=== PATIENT | female | born 1965 | race Caucasian/White ===

== ENCOUNTER 2020-12-25 10:02 | Emergency (ER) | payer OTHER, SELFPAY ==
--- NOTE | ~2020-12-25 | XR_ITS ---
EXAMINATION: XR CHEST CLINICAL INFORMATION: Shortness of breath COMPARISON: 10/25/2010 TECHNIQUE: AP portable upright view of the chest was obtained. FINDINGS: Lordotic positioning. Nonspecific prominence of the cardiac and mediastinal contours likely artifactual. Lungs grossly clear without consolidation or effusion. Lung volumes preserved. XR/XR chest 1V IMPRESSION: Limited portable radiograph without acute abnormality.
--- NOTE | 2020-12-25 10:15 | ECG_ITS ---
Test Reason : SOB Blood Pressure : / mmHG Vent. Rate : 074 BPM Atrial Rate : 074 BPM P-R Int : 162 ms QRS Dur : 086 ms QT Int : 408 ms P-R-T Axes : 036 -12 -06 degrees QTc Int : 452 ms Normal sinus rhythm ST & T wave abnormality, consider anterolateral ischemia Abnormal ECG When compared with ECG of 25-DEC-2020 10:04, Inverted T waves have replaced nonspecific T wave abnormality in Anterior leads Referred By: Soraya Palacios Electronically Signed By:Hiram French
[2020-12-25 10:20] VITALS: BP 153/78; PULSE 78; RESP 20; TEMP 36.9; O2SAT 98; BMI 45.6
--- NOTE | 2020-12-25 10:27 | ED.GENADULT ---
HPI - General Adult General Chief complaint: General Medical Stated complaint: sob,fatigue Time Seen by Provider: 12/25/20 10:15 Source: patient Mode of arrival: ambulatory Limitations: no limitations History of Present Illness HPI narrative: 55 y/o female with history of fibromyalgia, depression, seizures, hypothyroidism who presents to the ED c/o generalized fatigue, SOB and non-productive cough for the last 1 week. She received her second dose of her COVID vaccine 7 days ago. The following 48 hours she had body aches and fatigue. 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 Since then she has not been sleeping well. She has not been taking care of her self, not taking her medications and eating poorly. She denies SI but admits to worsening depression with poor sleep. She reports feeling wheezy with a dry cough. Denies history of asthma or COPD. MD complaint: fatigue Onset (ago): week(s) (1) Radiation: non-radiation Severity: moderate Exacerbating factors: movement Associated symptoms: cough, malaise and weakness Treatments prior to arrival: none Related Data Allergies Allergy/AdvReac Type Severity Reaction Status Date / Time No Known Allergies Allergy Unverified 07/01/20 16:28 Review of Systems Review of Systems: Constitutional: No Fever, No Chills ENT/Mouth: No sore throat, No Rhinorrhea, No Swallowing Difficulty Eyes: No Eye Pain, No Swelling, No Redness Cardiovascular: No Chest Pain, No SOB, No Orthopnea, No Edema Respiratory: + Cough, No Sputum, No Wheezing, No dyspnea Gastrointestinal: No Nausea, No Vomiting, No Diarrhea, No abdominal Pain Genitourinary: No Dysuria, No Urinary Frequency, No Hematuria Musculoskeletal: No joint pain, + Myalgias Skin: No Skin Lesions, No rash Neuro: + Weakness, No Numbness, No Dizziness, No Headache Psych: No Anxiety/Panic, + Depression, No SI Heme/Lymph: No Bruising, No Lymphadenopathy Endocrine: No Polyuria, No Polydipsia PMFSH Past Medical History Attestation statement: The following information was validated with the patient. Medical History Depressed Fibromyalgia Hypothyroid Surgical History (Updated 12/25/20 @ 10:25 by Destinee Liz) History of hip replacement Social History Social History Alcohol intake: current Alcohol intake frequency: 0-2 drinks per day Smoking Status: Former smoker Use of substances other than those prescribed or required for medical reasons: No Advance Directives: No Advance Directives Information Provided: No Physical Exam Vital Signs: Vital Signs: Last Vital Signs Temp 98.4 F 12/25/20 11:17 Pulse 69 12/25/20 11:17 Resp 18 12/25/20 11:17 BP 148/56 H 12/25/20 11:17 Pulse Ox 98 12/25/20 11:17 Body Mass Index 45.6 Appearance: Alert. Oriented X3. No acute distress. Eyes: Pupils equal, round and reactive to light. ENT: Pharynx normal. Neck: Normal inspection. Neck supple. CVS: Normal heart rate and rhythm. Pulses normal. Respiratory: No respiratory distress. Breath sounds normal. Abdomen: Obese, soft and non-tender. +BS x4 Skin: Skin warm and dry. Normal skin color. Normal skin turgor. No rashes. Extremities: No lower extremity edema. Negative Tavon's sign. Neuro: Oriented X 3. No motor deficit. No sensory deficit. Course Course Course Narrative: 55 y/o female presenting with fatigue, cough, wheezing after COVID vaccine & recent of her client causing increased stress, lack of sleep. She was seen at [facility] and sent to the ER for ischemic changes on EKG - t-wave inversions in leads II,III, aVF and V3-V6. She denies chest pain and SOB. Main complaint is fatigue. Admits to not taking meds in 1 week. Will give dose of Synthroid here, check basic labs, EKG and CXR. Dispo pending results. Reevaluation(s) Reevaluation #1: Lab workup is unremarkable, including negative troponin, BNP, TSH, electrolytes, CXR. COVID negative. She continues to be chest pain free and denies SOB. We discussed her abnormal EKG and recommended following up with a Radio Maintainer which she is agreeable to. She is stable for discharge. Medical Decision Making Lab Data Result diagrams: 12/25/20 10:58 12/25/20 10:58 Labs: Lab Results 12/25/20 12/25/20 12/25/20 Range/Units 10:58 10:58 10:58 WBC 5.6 (4.8-10.8) X10*3/uL RBC 4.76 (4.20-5.50) X10*6/uL Hgb 13.9 (12.0-16.0) g/dl Hct 43.2 (37-47) % MCV 90.8 (80-98) fL MCH 29.2 (27.0-33.0) pg MCHC 32.2 (31.0-35.0) g/dl RDW 14.1 (11.0-16.0) % Plt Count 163 (160-400) X10*3/uL MPV 8.4 L (9.4-12.3) fL Immature Gran % (Auto) 0.5 H (0.0-0.4) % Neut % (Auto) 52.5 (45-73) % Lymph % (Auto) 35.2 (20-40) % Becker % (Auto) 5.9 (2-11) % Eos % (Auto) 5.0 H (0-4) % Baso % (Auto) 0.9 (0-2) % Lymph # (Auto) 2.0 (1.2-4.9) X10*3/uL Becker # (Auto) 0.3 (0.1-1.2) X10*3/uL Eos # (Auto) 0.3 (0.0-0.4) X10*3/uL Baso # (Auto) 0.1 (0.0-0.2) X10*3/uL Abs Immat Gran (auto) 0.03 (0.00-0.03) X10*3/uL Absolute Neuts (auto) 2.9 (2.0-8.3) X10*3/uL Absolute Nucleated RBC 0.000 (0.0-0.012) X10*3/uL Nucleated RBC % (auto) 0.0 (0.0-0.2) /100WBC PT 10.6 L (10.8-13.0) SEC INR 0.9 (0.9-1.1) APTT 33.4 (24.1-38.0) SEC Sodium 139 (135-145) mmol/L Potassium 4.2 (3.3-5.1) mmol/L Chloride 104 (96-108) mmol/L Carbon Dioxide 27 (22-29) mmol/L Anion Gap 12 (12-20) BUN 13 (9-16) mg/dL Creatinine 0.94 (0.5-1.4) mg/dL Estim Creat Clear Calc 89.5 Estimated GFR > 60 Random Glucose 96 (60-115) mg/dL Calcium 8.8 (8.4-10.2) mg/dL Magnesium 2.0 (1.6-2.6) mg/dL Total Bilirubin 0.3 (0.0-1.0) mg/dL Direct Bilirubin 0.2 (0.0-0.5) mg/dL AST 32 H (5-31) U/L ALT 27 (0-31) U/L Alkaline Phosphatase 185 H (39-117) U/L Troponin I High Sens (<3.5-17.0) ng/L B-Natriuretic Peptide (<100) pg/mL Total Protein 6.9 (6.5-8.0) g/dL Albumin 4.2 (3.5-5.0) g/dL TSH (0.32-4.0) uIU/mL Urine Color Urine Appearance Urine pH (5.0-8.0) Ur Specific [place] (1.005-1.025) Urine Protein (NEG-TRACE) MG/DL Urine Glucose (UA) (NEG) MG/DL Urine Ketones (NEG) MG/DL Urine Blood (NEG) Urine Nitrite (NEG) Ur Leukocyte Esterase (NEG) Urine RBC (0) /HPF Urine WBC (0-4) /HPF Ur Squamous Epith Cells /LPF Urine Bacteria /LPF COVID-19 (CE) (Negative) COVID-19 Clin Com 12/25/20 12/25/20 12/25/20 Range/Units 10:58 10:58 10:58 WBC (4.8-10.8) X10*3/uL RBC (4.20-5.50) X10*6/uL Hgb (12.0-16.0) g/dl Hct (37-47) % MCV (80-98) fL MCH (27.0-33.0) pg MCHC (31.0-35.0) g/dl RDW (11.0-16.0) % Plt Count (160-400) X10*3/uL MPV (9.4-12.3) fL Immature Gran % (Auto) (0.0-0.4) % Neut % (Auto) (45-73) % Lymph % (Auto) (20-40) % Becker % (Auto) (2-11) % Eos % (Auto) (0-4) % Baso % (Auto) (0-2) % Lymph # (Auto) (1.2-4.9) X10*3/uL Becker # (Auto) (0.1-1.2) X10*3/uL Eos # (Auto) (0.0-0.4) X10*3/uL Baso # (Auto) (0.0-0.2) X10*3/uL Abs Immat Gran (auto) (0.00-0.03) X10*3/uL Absolute Neuts (auto) (2.0-8.3) X10*3/uL Absolute Nucleated RBC (0.0-0.012) X10*3/uL Nucleated RBC % (auto) (0.0-0.2) /100WBC PT (10.8-13.0) SEC INR (0.9-1.1) APTT (24.1-38.0) SEC Sodium (135-145) mmol/L Potassium (3.3-5.1) mmol/L Chloride (96-108) mmol/L Carbon Dioxide (22-29) mmol/L Anion Gap (12-20) BUN (9-16) mg/dL Creatinine (0.5-1.4) mg/dL Estim Creat Clear Calc Estimated GFR Random Glucose (60-115) mg/dL Calcium (8.4-10.2) mg/dL Magnesium (1.6-2.6) mg/dL Total Bilirubin (0.0-1.0) mg/dL Direct Bilirubin (0.0-0.5) mg/dL AST (5-31) U/L ALT (0-31) U/L Alkaline Phosphatase (39-117) U/L Troponin I High Sens < 3.5 (<3.5-17.0) ng/L B-Natriuretic Peptide 53 (<100) pg/mL Total Protein (6.5-8.0) g/dL Albumin (3.5-5.0) g/dL TSH 3.11 (0.32-4.0) uIU/mL Urine Color Urine Appearance Urine pH (5.0-8.0) Ur Specific [place] (1.005-1.025) Urine Protein (NEG-TRACE) MG/DL Urine Glucose (UA) (NEG) MG/DL Urine Ketones (NEG) MG/DL Urine Blood (NEG) Urine Nitrite (NEG) Ur Leukocyte Esterase (NEG) Urine RBC (0) /HPF Urine WBC (0-4) /HPF Ur Squamous Epith Cells /LPF Urine Bacteria /LPF COVID-19 (CE) Negative (Negative) COVID-19 Clin Com See Note 12/25/20 Range/Units 11:14 WBC (4.8-10.8) X10*3/uL RBC (4.20-5.50) X10*6/uL Hgb (12.0-16.0) g/dl Hct (37-47) % MCV (80-98) fL MCH (27.0-33.0) pg MCHC (31.0-35.0) g/dl RDW (11.0-16.0) % Plt Count (160-400) X10*3/uL MPV (9.4-12.3) fL Immature Gran % (Auto) (0.0-0.4) % Neut % (Auto) (45-73) % Lymph % (Auto) (20-40) % Becker % (Auto) (2-11) % Eos % (Auto) (0-4) % Baso % (Auto) (0-2) % Lymph # (Auto) (1.2-4.9) X10*3/uL Becker # (Auto) (0.1-1.2) X10*3/uL Eos # (Auto) (0.0-0.4) X10*3/uL Baso # (Auto) (0.0-0.2) X10*3/uL Abs Immat Gran (auto) (0.00-0.03) X10*3/uL Absolute Neuts (auto) (2.0-8.3) X10*3/uL Absolute Nucleated RBC (0.0-0.012) X10*3/uL Nucleated RBC % (auto) (0.0-0.2) /100WBC PT (10.8-13.0) SEC INR (0.9-1.1) APTT (24.1-38.0) SEC Sodium (135-145) mmol/L Potassium (3.3-5.1) mmol/L Chloride (96-108) mmol/L Carbon Dioxide (22-29) mmol/L Anion Gap (12-20) BUN (9-16) mg/dL Creatinine (0.5-1.4) mg/dL Estim Creat Clear Calc Estimated GFR Random Glucose (60-115) mg/dL Calcium (8.4-10.2) mg/dL Magnesium (1.6-2.6) mg/dL Total Bilirubin (0.0-1.0) mg/dL Direct Bilirubin (0.0-0.5) mg/dL AST (5-31) U/L ALT (0-31) U/L Alkaline Phosphatase (39-117) U/L Troponin I High Sens (<3.5-17.0) ng/L B-Natriuretic Peptide (<100) pg/mL Total Protein (6.5-8.0) g/dL Albumin (3.5-5.0) g/dL TSH (0.32-4.0) uIU/mL Urine Color YELLOW Urine Appearance CLEAR Urine pH 5.0 (5.0-8.0) Ur Specific [place] 1.020 (1.005-1.025) Urine Protein NEG (NEG-TRACE) MG/DL Urine Glucose (UA) NEG (NEG) MG/DL Urine Ketones NEG (NEG) MG/DL Urine Blood TRACE (NEG) Urine Nitrite NEG (NEG) Ur Leukocyte Esterase 1+ H (NEG) Urine RBC 0-2 (0) /HPF Urine WBC 1-4 (0-4) /HPF Ur Squamous Epith Cells 1+ /LPF Urine Bacteria 1+ /LPF COVID-19 (CE) (Negative) COVID-19 Clin Com ECG Data Attestation: I personally reviewed and interpreted this ECG as follows: Prior ECG tracings: available for review Interpretation: normal sinus rhythm, HR 74 bpm, normal MD interval, normal QTc, t-wave inversions in lead III, V3-V6. changed from prior in 2011 Scores Heart Score History: -0- slightly suspicious ECG: -1- non specific repolarization disturbance Age: -1- >45 - <65 Risk factory: -1- 1 or 2 risk factors Troponin: -0- < or = normal limit Score: 3 Risk: 1.7% Critical Care Time Critical Care Time Critical Care Time: No Discharge Plan Discharge Clinical Impression: Abnormal ECG, Fatigue after COVID-19 vaccination Patient Disposition: Home, Self-Care Instructions: Stress (ED) Additional Instructions: Your EKG today was abnormal. Your other lab workup is reassuring against acute cardiac stress. Recommend follow up with Cardiology. The rest of your lab workup today was normal. You MUST take all of your medications as directed. You MUST take care of your self - including eating right, sleeping 6-8 hours per night and taking your meds. If you develop worsening symptoms, or develop chest pain or shortness of breath come back to the ER for further evaluation. Follow up with your doctor this week. Referrals: Eh Stratton MD [Physician] - 2 days (abnormal EKG)
[2020-12-25 11:07] LABS: MANUAL DIFF FLAG NO
[2020-12-25 11:10] LABS: Basophils Absolute Auto 0.1 X10*3/uL (0.0-0.2); Basophils Percent Auto 0.9 % (0-2); Eosinophils Absolute Auto 0.3 X10*3/uL (0.0-0.4); Hematocrit 43.2 % (37-47); Hemoglobin 13.9 g/dl (12.0-16.0); Imm Gran Abs Auto 0.03 X10*3/uL (0.00-0.03); Imm Gran Pct Auto 0.5 % (0.0-0.4); Lymphocytes Percent Auto 35.2 % (20-40); Mean Corpuscular HGB Conc 32.2 g/dl (31.0-35.0); Mean Corpuscular Hemoglobin 29.2 pg (27.0-33.0); Mean Corpuscular Volume 90.8 fL (80-98); Mean Platelet Volume 8.4 fL (9.4-12.3); Monocytes Absolute Auto 0.3 X10*3/uL (0.1-1.2); Monocytes Percent Auto 5.9 % (2-11); Neutrophils Absolute Auto 2.9 X10*3/uL (2.0-8.3); Neutrophils Percent Auto 52.5 % (45-73); Platelet Count 163 X10*3/uL (160-400); Red Blood Count 4.76 X10*6/uL (4.20-5.50); Red Cell Distribution Width 14.1 % (11.0-16.0); White Blood Count 5.6 X10*3/uL (4.8-10.8)
[2020-12-25 11:13] LABS: INTERNATIONAL NORM RATIO 0.9 (0.9-1.1); Prothrombin Time 10.6 SEC (10.8-13.0)
[2020-12-25] MEDS: Levothyroxine Sodium 75 MCG TABLET PO (11:13)
[2020-12-25 11:16] LABS: Partial Thromboplastin Time 33.4 SEC (24.1-38.0)
--- NOTE | 2020-12-25 11:16 | PC.NURSE ---
labs obtained, urine obtained
[2020-12-25 11:17] VITALS: BP 148/56; PULSE 69; RESP 18; TEMP 36.9; O2SAT 98
[2020-12-25 11:24] LABS: COVID-19 Test Negative (Negative)
[2020-12-25 11:28] LABS: Glucose Urine UA NEG (NEG); Leukocyte Esterase Urine 1+ (NEG); Nitrite Urine NEG (NEG); UACC Culture Trigger YES; Urine Blood TRACE (NEG); Urine Ketones NEG (NEG); Urine Protein NEG (NEG-TRACE)
[2020-12-25 11:29] LABS: Appearance Urine CLEAR; Color Urine YELLOW
[2020-12-25 11:37] LABS: Bacteria Urine 1+ /LPF; RBC Urine 0-2 /HPF (0); Squamous Epithelial Cell Urine 1+ /LPF
[2020-12-25 11:43] LABS: Alanine Aminotransferase 27 U/L (0-31); Albumin Level 4.2 g/dL (3.5-5.0); Alkaline Phosphatase 185 U/L (39-117); Anion Gap 12 (12-20); Aspartate Amino Transferase 32 U/L (5-31); Bilirubin Direct 0.2 mg/dL (0.0-0.5); Bilirubin Total 0.3 mg/dL (0.0-1.0); Blood Urea Nitrogen 13 mg/dL (9-16); Calcium 8.8 mg/dL (8.4-10.2); Carbon Dioxide 27 mmol/L (22-29); Chloride 104 mmol/L (96-108); Creatinine Clr Calc Pharmacy 89.5; Estimated Glomerular Filt Rate > 60; Glucose Random 96 mg/dL (60-115); Potassium 4.2 mmol/L (3.3-5.1); Sodium 139 mmol/L (135-145); Total Protein 6.9 g/dL (6.5-8.0)
[2020-12-25 11:49] LABS: B Type Natriuretic Peptide 53 pg/mL (<100); Troponin-I High Sensitivity < 3.5 ng/L (<3.5-17.0)
[2020-12-25 12:03] LABS: TSH reflex Free T4 3.11 uIU/mL (0.32-4.0)
[2020-12-25 14:05] LABS: Procalcitonin 0.02 ng/mL
== END 2020-12-25 13:48 | disposition home or self-care (01) ==
PROVIDERS: Physician Assistant; Emergency Provider Emergency Medicine; PCP Internal Medicine
DX: R53.83 Other fatigue (principal); T50.Z95A Adverse effect of other vaccines and biological substances, initial encounter; Y92.9 Unspecified place or not applicable; R93.1 Abnormal findings on diagnostic imaging of heart and coronary circulation; Z87.891 Personal history of nicotine dependence; Z20.822 Contact with and (suspected) exposure to COVID-19
CPT/HCPCS: 36415; 71045; 80048; 80076; 81001; 81003; 83735; 83880; 84145; 84443; 84484; 85025; 85610; 85730; 87086; 87147; 87635; 93005; 99283; 99284

== ENCOUNTER 2025-09-29 13:48 | Outpatient (AMB) | payer OTHER, SELFPAY ==
--- NOTE | 2025-09-29 13:54 | A.OFFVIS_ITS ---
Intake Visit Reasons: 6m follow up migraine BPPV Allergies No Known Allergies Allergy (Unverified 07/01/20 16:28) HPI Comments Details: 60 y/o woman with depression, remote h/o closed head injury, anxiety, seizure disorder (speaking gibberish, unresponsiveness, head turning, and shaking for a few minutes), and migraine headaches. She is presenting for management of stress. She reports that the last three months have been very stressful due to multiple factors. 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 To manage these stressors, she is seeing a therapist and a psychiatrist. She has also started journaling to help her process her thoughts and states that she is dealing with the situation. [facility] Medical History Depressed Fibromyalgia Hypothyroid Surgical History (Updated 12/25/20 @ 10:25 by Destinee Liz RN) History of hip replacement Social History Alcohol intake: current Alcohol intake frequency: 0-2 drinks per day Review of Systems Narrative - Psychiatric: Reports feeling mad and having significant stress for the past three months. Physical Exam Neuro Other: Mental Status: Alert and oriented to person, place, and time. Normal attention. Normal spontaneous speech, fluency, and comprehension. Cranial Nerves: CN II: Visual murray full to confrontation, visual acuity intact. CN III, IV, : Pupils equal, round, reactive to light and accommodation. Extraocular movements are normal. CN V: Facial sensation is normal. CN VII: Facial movements symmetrical. CN VIII: Hearing intact to bedside conversation is normal. CN IX, X: Palate elevates symmetrically. CN XI: Shoulder shrug and head turn symmetrical. CN XII: Tongue midline without atrophy or fasciculations. Extrapyramidal: Full facial expressions and blinking. No rigidity. Mild hand postural tremor Speech: Normal; no dysarthria or tremor. Assessment & Plan Assessment & Plan (1) Complex partial seizure disorder: Comment: MRI in Oct w/o cont: Mild to moderate L 4/5 spinal stenosis [place] [facility] specific white matter lesions [place] [facility] [place]: WNL EEG in office in Dec 2013: WNL [place] brain [place] [facility] [place] WO: couple of right frontal non enhancing hyperintensities, non specific Code(s): G40.209 - Localization-related (focal) (partial) symptomatic epilepsy and epileptic syndromes with complex partial seizures, not intractable, without status epilepticus Category: Medical (2) Migraine: Code(s): G43.909 - Migraine, unspecified, not intractable, without status migrainosus Category: Medical Qualifiers: Migraine type: migraine (< 15 days per month) without aura Status migrainosus presence: without status migrainosus Intractability: not intractable Qualified Code(s): G43.009 - Migraine without aura, not intractable, without status migrainosus Plan Impression: a: Significant stress and depression b: Complex partial seizure disorder c: Migraine Rec: Topiramate 50mg one a day Medications: New topiramate 50 mg PO ONCE 90 tabs 1RF Coding Level of Care Code Est Pt Level 3 (69234) Diagnoses Complex partial seizure disorder G40.209 Migraine without aura and without status migrainosus, not intractable G43.009 Migraine type: migraine (< 15 days per month) without aura Status migrainosus presence: without status migrainosus Intractability: not intractable
--- OUTSIDE RECORDS SUMMARY | 2025-09-29 18:00 | XMS_ITS | Patient Health Record ---
Author Organization [facility] Address [address] [place] [address] Care Team Providers Care Measurement Coordinator Name Role Phone LUIS BURNETT MD Primary Care Provider ESTIVEN Bertrand Unavailable [phone] Reason For Referral No Information Medications Medication SIG (Take, Route, Frequency, Duration) Notes Start Date End Date Status tiZANidine HCl 2 MG Tablet 1 tab(s) oral ly every 8 hours Active Gabapentin 300 MG Capsule 1 cap(s) orall y 3 times a day; Duration: 30 day(s) Active diazePAM 5 MG Tablet 1 tab(s) orally onc e a day Active Tylenol 325 MG Tablet 2 tab(s) orally ev violet 6 hours Active traZODone HCl 100 MG Tablet 1-2 tab(s) o rally at bedtime Active busPIRone HCl 15 MG Tablet 1 tab(s) oral ly 3 times a day Active PROzac 40 MG Capsule 2cap(s) orally once a day Active SUMAtriptan Succinate 50 MG Tablet 1 tab(s) orally once as needed Active Levothyroxine Sodium 75 MCG Tablet 1 tab(s) orally once a day Active CeleBREX 200 MG Capsule 1 cap(s) orally 2 times a day prn; Duration: 90 Active Topiramate 100 MG Tablet 1 tab(s) orally 2 times a day; Duration: 30 day(s) Active Social History Tobacco Use: Social History Observation Description Date Details (start date - stop date) Never Smoker NA - NA Social History Tobacco Use: Social Info Question Answer Notes Smoking Are you a: never smoker Additional Details Category Social Info Options Details General Occupation: caregiver asbestos exposure: no alcohol use: no drug use: no Coffee/Tea/Soda: yes Marital Status experience no Living with smokers in household no Problems Problem Type SNOMED Code ICD Code Onset Dates Problem Status W/U Status Risk Notes Problem Fibromyalgia (787111012) Fibromyalgia (M79.7) Active confirmed Problem Primary osteoarthritis (765200263) Primary osteoarthritis involving multiple joints (M15.0) Active confirmed Problem Joint pain (86285076) Arthralgia, unspecified joint (M25.50) Active confirmed Plan Of Treatment No Information Insurance Providers Payer Name Payer Address Payer Phone Subscriber Number Group Number Insured Name Patient Relationship to Insured Coverage Start Date Coverage End Date [facility] [address] [place] [address] [id number] MARIAJOSE SANCHEZ Self - patient is the insured 6 Medical (General) History Medical History History ICD Code depression migraines seizures thyroid disease Trochanteric bursitis Tendonitis R thigh Osteoarthritis R side Surgical History Surgery Date(Month/Year) R hip replacement 11/2017 crpal tunnel january 2016
--- OUTSIDE RECORDS SUMMARY | 2025-09-29 18:01 | XMS_ITS | Clinical Summary ---
Author Organization [facility] Address [address] [place] [phone] Phone Care Team Providers Care Veneer Supervisor Name Role Phone Zo Del Rosario MD Primary Care Provider [phone] Allergies No known active allergies Medications topiramate (TOPAMAX) 100 MG tablet Take 100 mg by mouth daily. Active levothyroxine (SYNTHROID, LEVOTHROID) 75 MCG tablet Take 75 mcg by mouth every morning. Active diazePAM (VALIUM) 10 MG tablet Take 10 mg by mouth daily. PRN Active FLUoxetine (PROZAC) 40 MG capsule Take 40 mg by mouth daily. Active busPIRone (BUSPAR) 30 MG tablet Take 30 mg by mouth 2 (two) times a day. Active SUMAtriptan (IMITREX) 50 MG tablet Take 1 tablet by mouth every morning. 12/05/2023 Active buPROPion (WELLBUTRIN XL) 150 MG ER 24 hr tablet Take 150 mg by mouth daily. Active lisdexamfetamin e (VYVANSE) 20 MG capsule Take 1 capsule by mouth every morning. 06/09/2024 Active Active Problems Problem Noted Date Diagnosed Date Urge incontinence 12/31/2023 Assessment & Plan (12/31/2023 2:32 PM EDT): Continue Kegels which she is seeing some benefit from. Discussed option for pelvic floor PT or anticholinergic medicine in future. Certainly we can try topical estrogen; given that menopause is >10 years ago I do not recommend systemic HRT as safe for her. She prefers a vaginal tablet to cream. Acute bilateral low back pain without sciatica 1 10/24/2022 Assessment & Plan (08/24/2023 4:59 PM EST): Patient presents with all over low back muscle pain and no red flags. Pain is similar to that which she has had on many occasions and she demonstrates mild improvement in function after a single chiropractic visit and has responded well to chiropractic in the past so we have excellent reason to believe she will recover completely with ongoing chiropractic treatment as planned. She did have some relief from 4 mg tizanidine and I recommend increasing the dose to 8 mg to give her better pain relief until her chiropractor fully relieves this episode. I recommend physical therapy afterwards for stretching and strengthening the back and core muscles for prevention of future episodes. I continue to urge her to leave the house and go for a walk on a regular basis so she can get stronger, lose weight (as she often laments she cannot), and gain independence. Right foot pain 08/01/2022 Assessment & Plan (08/01/2022 9:28 AM EDT): Status post fall in yard. Now with pain in right foot. -Obtain right foot x-ray to rule out fracture, if positive for fracture patient will need to be sent to him for walk-in not for or cast -Continue ibuprofen/Tylenol alternating -Continue ice Morbid obesity 03/11/2021 Assessment & Plan (12/31/2023 2:30 PM EDT): Agree she needs a TSH checked. Otherwise her labs are up to date. Reviewed drug monographs. Buspirone does not affect the liver. Bupropion and fluoxetine both recommend checking as clinically indicated; I see no indication in her case. As we have discussed before I think she is not losing weight because she is physically inactive. I'm thrilled to hear she is starting an exercise program and encouraged her to continue this. If she does not achieve meaningful weight loss we can discuss alternative weight loss medicines. Assessment & Plan (07/17/2022 12:55 PM EDT): While I can prescribe medicine for weight loss (Gabriella is vehemently opposed to surgery), she really needs to start with exercise and diet. I explained this multiple times today. If not this week, then next week when she is better from her fall. She can get a free membership to the [employer] and I encouraged her to try water aerobics as easier on the body given her multiple arthritic joints. We discussed the concept of weight setpoint and the importance of finding a healthier diet and an exercise routine she can MAINTAIN indefinitely. If these do not suffice for weight loss (her goal is 175 lb) then we can add on medication. I suggest she ask her neurologist if she still needs topiramate for seizure control, because it's not helping with weight and if she doesn't still need it she shouldn't take it. Assessment & Plan (06/09/2021 4:35 PM EDT): We discussed that the initial mainstays of treatment are diet and exercise. I encouraged her to increase her amount of exercise but she states that she cannot exercise for longer because of her hip and she cannot exercise more frequently because of logistical problems getting to the mall. I encouraged her to consider other places to exercise in shorter but more frequent bursts. Obviously, a diet full of doughnuts is not going to result in weight loss. I offered some suggestions about how she might either change her diet or change her family's expectations about diet but she does not feel that any of these are practical. I explained that when diet and exercise are ineffective, weight loss medications and/or bariatric surgery may be useful next steps. However, neither of these would be available to her unless she can actually demonstrate an effort at both diet and exercise. I recommend she see a refuse collector supervisor as there is clearly major room for improvement on that front. Assessment & Plan (03/11/2021 8:35 AM EDT): Recommend exercise as tolerated. Pt enjoys swimming and this time of year it is free to swim outdoors. I suggested she contact town farmer, or ask friends, about local swimming holes she can use for the next several months. Exercise and weight loss should help her hip pain. Agree w/plan for increased topiramate. She is not interested in dietary changes. Resolved Problems Problem Noted Date Diagnosed Date Resolved Date Loud snoring 07/17/2022 08/01/2022 Assessment & Plan (07/17/2022 12:48 PM EDT): Intermediate risk for LYNN. Discussed pathophysiology of LYNN and briefly touched on treatment options. Agree w/need for sleep study. Referred to sleep medicine for further discussion. Routine medical exam 09/23/2021 022 Assessment & Plan (09/23/2021 4:43 PM EST): 56 y.o. female here for complete physical exam. We had a long conversation today about how it is okay for Gabriella to take some space to take care of herself even though her family tells her that since they work for pay outside the home and she does not, she is supposed to be available at their barker and call all day long. She complains that they all call her several times a day demanding help with various tasks and complain when they are not done quickly. If she does not answer her cell phone then they just call the house phone. I suggested she leave the house for a walk and simply forget to take her phone with her. They may not believe that they are independent adults who can look after themselves, but they are, and she needs to look after herself as well. TSH was in range in March and at this low dose, repeat testing is only needed every 2 years. USPSTF A&B recommendations reviewed with pt. BP: WNL BMI: Body mass index is 44.65 kg/m ., Recommend increasing exercise as tolerated and Recommend decreasing alcohol intake. She reports limited caloric intake and is already on a medication known to help with weight loss (Topamax), which probably accounts for this, and does not want to consider surgery, so despite her unwillingness to consider exercising or drinking less, I explained that those are the remaining options for weight loss. Pap smears for people age 21-65 with a cervix: due, will do with Dr Marks, her bank clerk STI testing for teens and adults at risk, and at least one lifetime HIV and hep C test: Done previously and normal/negative per pt PrEP for persons at high risk of HIV: N/A plans in the next year: N/A patient/partner is postmenopausal Depression screen: in treatment elsewhere IPV screen in women of reproductive age (or others PRN): Positive and declines referral Smoking cessation counseling: N/A Alcohol use counseling: counseled to decrease consumption (2 drinks/day) LTBI screening in people at increased risk: Done previously and normal/negative per pt BrCa screening in women/AFAB people at risk: Pt reports she is BrCa negative Vaccinations: declines COVID booster, otherwise up to date per pt Last dental visit: upper plate, edentulous on bottom Lipid screening to consider statin for primary prevention for adults 40-75, or at younger ages with risk factors: done today Breast cancer risk reducing medication in people with breasts 35 and older at risk: N/A Glucose/diabetes screening for people 35 - 70 with BMI >25: done today Breast cancer screening with biennial mammography for people with breasts 50 and older, and can consider for 40-49: will do with Dr Marks Colonoscopy for adults 45-75, and can consider at older ages: does not want one, does not like the idea of the prep, will do stool testing Aspirin for primary prevention for adults 50-59 with risk >10%, and can consider for 60-69: Depends on lipids Acquired hypothyroidism 03/11/202107/15 History of right hip replacement 03/11/2021 08/01/2022 Seizure 10/15/2008 08/01/2022 Overview (03/11/2021): grand mal x 2, etiology unknown. followed by Dr Wan Osteoarthritis of both knees 08/01/2022 Overview (03/11/2021): most recent steroid injection L knee 02/2021 Osteoarthritis of left shoulder 08/01/2022 Overview (03/11/2021): plans for surgery in 2019 were put on hold Major depression, recurrent 08/01/2022 Overview (03/11/2021): Kami, therapist. Dr. Uriostegui, psychiatrist Assessment & Plan (07/17/2022 12:47 PM EDT): Apparently Gabriella is unable to access therapy more frequently which is really a shame. Agree that taking medicine which doesn't help is pointless, but encouraged her to meet with her psychiatrist and request new Rx to try to find a medicine that DOES help. Full dentures 08/01/2022 Overview (09/23/2021): Does not usually wear her bottom plate Immunizations Immunization Administration Dates Next Due COVID-19 (Pre-08/06) Moderna Vaccine, mRNA, PF 0 12/18/2020,11/20/2020 Influenza, Unspecified Formulation 07/29/2023 Family History Medical History Relation Comments Heart disease Father valve replacemen t - of complications Uterine cancer Mother Breast cancer Sister 1 Lung cancer Sister 2 small cell Relation Status Comments Father Mother of complica tions of an intestinal bypass from the 1970s Sister 1 (Age 51) Sister 2 Social History Tobacco Use Types Packs/Day Years Used Date Smoking Tobacco: Never Smokeless Tobacco: Never Tobacco Cessation:Counseling Given: Not Answered Alcohol Use Standard Drinks/Week Comments Yes 9 (1 standard drink = 0.6 oz pur e alcohol) Child or Family Care Answer Date Record ed Do you have problems with on e of the following making it difficult for you to work, study, or receive health care? No 03/10/2021 Education Answer Date Recorded Are you interested in more education? Not on tom e 03/12/2023 Are you concerned about learning? Not on file 03/12/2023 No 03/12/2023 No 03/12/2023 Food Answer Date Recorded Within the past 6 months we worried whether our food would run out before we got money to buy more. Never True 03/10/2021 Within the past 6 months the food we bought just didn't last and we didn't have enough money to get more. Never True Residential Stability Answer Date Recor ded What is your housing situation today? I have alberto sing 03/10/2021 How many times have you move d in the past 12 months? Zero (I did not move) 03/10/2021 06 Are you worried that in t he next 2 months, you may not have your own housing to live in? No 03/10/2021 Paying for Meds Answer Date Recorded Do you have trouble paying for medicines? No 03/10/2021 Paying Utility Bills Answer Date Record ed Do you have trouble paying your heating or elect ricity bill? No 03/10/2021 Transportation Answer Date Recorded Has the lack of transportati on kept you from medical appointments or from getting medications? No 03/10/2021 Unemployment Answer Date Recorded Are you currently unemployed or working on a part-time or temporary basis, and looking for work? No 03/10/2021 Digital Access Answer Date Recorded No 03/12/2023 No 03/12/2023 Reliable internet access at home? Not on file 03/12/2023 Device with a working camera? Not on file Comments Unknown Sex and Gender Information Value Date Recorded Sex Assigned at Female 03/10/2021 11:38 AM EDT Legal Sex Female 10:33 PM EDT Gender Identity Female 03/10/2021 11:38 AM EDT Sexual Orientation Straight 03/10/2021 11 :38 AM EDT Last Filed Vital Signs Vital Sign Reading Time Taken Comments Blood Pressure 125/80 07/16/2024 2:32 PM EDT Pulse 106 07/16/2024 2:32 PM EDT Temperature 37.3 C (99.2 F) 07/16/2024 2:32 PM EDT Respiratory Rate 18 09/22/2021 9:25 AM EST Oxygen Saturation 97% 07/16/2024 2:32 PM EDT Inhaled Oxygen Concentration - - Weight 129.9 kg (286 lb 6.4 oz) 12/31/2023 8:51 AM EDT Height 164 cm (5' 4.57 ) 07/16/2024 2:32 PM EDT Body Mass Index 48.3 08/24/2023 10:44 AM EST Plan of Treatment Health Maintenance Due Date Last Done Comments HEPATITIS C SCREENING 1983 HIV ONE-TIME SCREENING (18-6 5 YEARS) 1983 PAP SMEAR 1986 MAMMOGRAM 2005 COLOGUARD 2010 COLONOSCOPY 2010 COLORECTAL CANCER SCREENING 2010 FIT TEST 2010 FOBT 2010 SIGMOIDOSCOPY 2010 VIRTUAL COLONOSCOPY 2010 PNEUMOCOCCAL VACCINES (50+ years) (1 of 1 - PCV) 2015 RSV VACCINE (1 - Risk 50-74 years 1-dose series) 2015 ZOSTER VACCINES (1 of 2) 2015 DEPRESSION SCREENING 03/10/2022 03/10/2021, 03/10/2021 SCREENING FOR DIABETES 09/22/2024 09/22/2021 TSH LEVEL 12/30/2024 12/31/2023, 03/17/2021 INFLUENZA VACCINE (#1) 2025 07/29/2023 COVID-19 VACCINE (3 - 2024-2 6 season) 2025 12/18/2020, 11/20/2020 LIPID PANEL 09/22/2026 09/22/2021 Adult Td,Tdap Booster 10/15/2027 Postpo anita from 1965 (Patient Declines / Guardian Declines) SMOKING STATUS SCREENING (Once After 26 Yrs) Completed 07/16/2024 HEPATITIS A VACCINES Aged Out No long er eligible based on patient's age to complete this topic HIB VACCINES Aged Out No longer eligi ble based on patient's age to complete this topic MENINGOCOCCAL VACCINES (ACWY) Aged Out No longer eligible based on patient's age to complete this topic MENINGOCOCCAL VACCINES (B) Aged Out N o longer eligible based on patient's age to complete this topic Medical Devices Not on file Procedures Procedure Name Priority Date/Time Associated Diagnosis Comments THYROID STIMULATING HORMONE (TSH) Routine 12/31/2023 9:37 AM EDT Hypothyroidism, unspecified type LIPID PANEL Routine 09/22/2021 10:19 AM EST Routine medical exam GLUCOSE Routine 09/22/2021 10:19 AM EST Routine medical exam from Last 3 Months or Most Recently Relevant to Health Maintenance Results * TSH (12/31/2023 9:37 AM EDT) TSH 2.80 0.27 - 4.20 uIU/mL [facility] Blood 12/31/2023 9:37 AM EDT 12/31/2023 9:40 AM EDT us Zo Del Rosario MD LAB BLOOD BKR ORDERABLES Fin al Result [address] [id number] * Glucose (09/22/2021 10:19 AM EST) GLUCOSE 96 70 - 99 mg/dL [facility] Blood 09/22/2021 10:1 9 AM EST 09/22/2021 10:30 AM EST Zo Del Rosario MD LAB BLOOD BKR ORDERABLES Fin al Result Performing Organization Address [facility] Co de Phone Number [address] [address] * (ABNORMAL) Lipid panel (09/22/2021 10:19 AM EST) HDL 80 mg/dL [facility] Comment: Interpretation <40 mg/dL: Low HDL cholesterol (major risk factor for CHD) Greater than or equal to 60 mg/dL: High HDL cholesterol ( negative risk factor for CHD) HDL - cholesterol is affected by a number of factors, e.g. smoking, excerise, hormones, sex and age. CHOLESTEROL 213 0 - 240 mg/dL [facility] TRIGLYCERIDES 91 30 - 160 mg/dL [facility] LDL 115 50 - 129 mg/dL [facility] Comment: LDL levels in terms of risk for coronary heart disease: <100 mg/dL: Optimal 100-129 mg/dL: Near or above optimal 130-159 mg/dL: Borderline high 160-189 mg/dL: High >190 mg/dL: Very High CARDIAC RISK RATIO 2.7(L) 3.3 - 4.4 C [facility] Blood 09/22/2021 10:1 9 AM EST 09/22/2021 10:30 AM EST Zo Del Rosario MD LAB BLOOD BKR ORDERABLES Fin al Result Performing Organization Address City/[facility]/ZIP Co de Phone Number [address] [phone] from Last 3 Months or Most Recently Relevant to Health Maintenance Insurance [employer]ON[employer]DO [employer] [facility] [employer]ON[employer]DO [employer] B[employer] ADMIN[employer]RATORS [facility] [employer] BENEFITS ADMIN[employer]RATORS RONALDO WELLTRISTENEET [facility] RONALDO WELLTRISTENEET [employer]MIN[employer] [facility] [employer] RONALDO ESQUIVELT [employer] RONALDO ESQUIVELT Care Teams Veneer Supervisor Relationship Specialty Start Date End Date Zo Del Rosario MD [address] [place] [phone] [email or web address] PCP - General Family Medicine 03/11/21 Additional Source Comments The information contained in this document represents components of the legal health record. It is not the complete legal health record.[facility]
== END 2025-09-29 14:07 | disposition home or self-care (01) ==
LOC: HO.HSM 13:49
PROVIDERS: PCP Internal Medicine; Visit Provider Psychiatry & Neurology Neurology
DX: G40.209 Localization-related (focal) (partial) symptomatic epilepsy and epileptic syndromes with complex partial seizures, not intractable, without status epilepticus (principal); G43.009 Migraine without aura, not intractable, without status migrainosus
CPT/HCPCS: 99213